=== PATIENT | male | born 2005 | race Caucasian/White ===

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

== ENCOUNTER 2024-02-12 22:30 | Emergency (ER) | payer OTHER | END 2024-02-12 23:05 | disposition home or self-care (01) | LOC: NAV ERS 22:30 | DX: F41.9 Anxiety disorder, unspecified (principal); F15.129 Other stimulant abuse with intoxication, unspecified | CPT/HCPCS: 99284 ==

== ENCOUNTER 2025-01-26 19:40 | Emergency (ER) | payer OTHER ==
[2025-01-26 20:30] LABS: Cocaine Metabolite Screen Negative (Negative); THC/Cannabinoid Screen Negative (Negative); Tricyclic Screen Negative (Negative)
[2025-01-26 20:37] LABS: ALT (SGPT) 22 U/L (Less than 45); AST (SGOT) 23 U/L (11-34); Albumin 4.3 g/dL (3.1-4.5); Alkaline Phosphatase 81 U/L (40-110); Anion Gap 13 mmol/L (10-20); BUN (Urea Nitrogen) 18 mg/dL (8.9-20.6); Bilirubin, Total 0.4 mg/dL (0.3-1.2); Calc. Creatinine Clearance 0 mL/min (70-130); Calcium 8.7 mg/dL (7.8-10.44); Carbon Dioxide 25 mmol/L (22-29); Chloride 109 mmol/L (98-107); Globulin 2.3 g/dL (2.4-3.5); Glucose 109 mg/dL (70-105); Potassium 3.3 mmol/L (3.5-5.1); Sodium 144 mmol/L (136-145)
[2025-01-26 20:38] LABS: Acetaminophen Less than 10 mcg/mL (Less than 10); Salicylate Less than 8.0 mg/dL (Less than 8.0)
[2025-01-26 21:11] LABS: Hematocrit 36.1 % (42.0-52.0); Hemoglobin 13.2 g/dL (14.0-18.0); Mean Corpuscular Hemoglobin 30.9 pg (27.0-31.0); Mean Corpuscular Volume 84.4 fl (78.0-98.0); Platelet Count 229 10x3/uL (130-400); Red Blood Cell (RBC) Count 4.28 mill/uL (4.70-6.10); White Blood Cell (WBC) Count 5.1 10x3/uL (4.8-10.8)
[2025-01-26 21:16] LABS: MDiff Complete? YES
[2025-01-26 21:35] LABS: Platelet Adequacy Comment Appears Adequate
== END 2025-01-26 23:09 | disposition home or self-care (01) ==
LOC: NAV ERS 19:40 → EEVIPCON 19:40 → NAV ERS 23:09
DX: R45.851 Suicidal ideations (principal)
CPT/HCPCS: 36415; 80053; 80306; 80307; 84443; 85025; 99285

== ENCOUNTER 2025-04-27 20:37 | Emergency (ER) | payer OTHER | END 2025-04-27 21:29 | disposition home or self-care (01) | LOC: NAV ERS 20:37 | DX: F15.20 Other stimulant dependence, uncomplicated (principal); F17.290 Nicotine dependence, other tobacco product, uncomplicated | CPT/HCPCS: 93005; 94760; 99284 ==

== ENCOUNTER 2025-05-12 01:34 | Emergency (ER) | payer OTHER ==
[2025-05-12 02:05] LABS: Hematocrit 41.9 % (42.0-52.0); Hemoglobin 15.2 g/dL (14.0-18.0); Mean Corpuscular Hemoglobin 29.9 pg (27.0-31.0); Mean Corpuscular Volume 82.7 fl (78.0-98.0); Platelet Count 264 10x3/uL (130-400); Red Blood Cell (RBC) Count 5.07 mill/uL (4.70-6.10); White Blood Cell (WBC) Count 3.9 10x3/uL (4.8-10.8)
[2025-05-12 02:20] LABS: ALT (SGPT) 18 U/L (Less than 45); AST (SGOT) 31 U/L (11-34); Albumin 4.4 g/dL (3.1-4.5); Alkaline Phosphatase 74 U/L (40-110); Anion Gap 17 mmol/L (10-20); BUN (Urea Nitrogen) 8 mg/dL (8.9-20.6); Bilirubin, Total 0.9 mg/dL (0.3-1.2); Calc. Creatinine Clearance 0 mL/min (70-130); Calcium 8.9 mg/dL (7.8-10.44); Carbon Dioxide 23 mmol/L (22-29); Chloride 97 mmol/L (98-107); Globulin 2.4 g/dL (2.4-3.5); Glucose 73 mg/dL (70-105); Potassium 3.3 mmol/L (3.5-5.1); Sodium 134 mmol/L (136-145); Troponin I Less than 0.010 ng/mL (< 0.028)
[2025-05-12 02:32] LABS: Cocaine Metabolite Screen Negative (Negative); THC/Cannabinoid Screen Negative (Negative); Tricyclic Screen Negative (Negative)
[2025-05-12 05:02] LABS: Troponin I Less than 0.010 ng/mL (< 0.028)
== END 2025-05-12 05:17 | disposition home or self-care (01) ==
LOC: NAV ERS 01:34
DX: R42 Dizziness and giddiness (principal); R11.0 Nausea; F17.290 Nicotine dependence, other tobacco product, uncomplicated
CPT/HCPCS: 80053; 80306; 84484; 85025; 93005; 94760; 99284